=== PATIENT | female | born 1975 ===

== ENCOUNTER 2016-12-13 08:43 | Day surgery (SDC) | payer MEDICAID, SELFPAY ==
[2015-07-12 14:03] VITALS: BMI 26.9
[2016-12-13 10:53] VITALS: RESP 18
--- NOTE | 2016-12-13 11:45 | CP.SDSHP ---
Same Day Surgery H & P - History Proposed Procedure: US guided FNA of thyroid nodules Pre-Op Diagnosis: Thyroid nodules - Allergies Allergies: Allergies PORK Allergy (Unknown, Unverified 05/30/15 10:34) RASH Penicillins Allergy (Verified 05/30/15 10:34) RASH - Physical Exam Vital Signs: Vital Signs 12/13/16 10:30 Temperature 98.2 F Pulse Rate 71 Respiratory 18 Rate Blood Pressure 114/71 O2 Sat by Pulse 98 Oximetry - Impression Impression: Pt with a 1.6 cm hypoechoic thyroid nodule in the right posterior lower pole. A hypoechoic area is present in the medial upper pole of the left thyroid that may represent the nodule described on the US report. Pt. Evaluated Today:Candidate for Anesthesia & Procedure: No Short Stay Discharge - Short Stay Discharge Admitting Diagnosis/Reason for Visit: NONTOXIC SINGLE THYROID NODULE Disposition: HOME/ ROUTINE
--- NOTE | 2016-12-13 11:46 | PCM.SURG1 ---
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 Possible 1.4 cm left thyroid nodule Post-Operative Diagnosis: Thyroid nodules Operation Performed: US guided FNA of right and left thyroid nodule Specimen/Specimens Removed: 25 g FNA x 4 passes per nodule Estimated Blood Loss: EBL {In ML}: 0 Blood Products Given: N/A Drains Used: No Drains Post-Op Condition: Good Date of Surgery/Procedure: 12/13/16 Time of Surgery/Procedure: 11:40
[2016-12-13 12:03] VITALS: BP 123/70; PULSE 73; TEMP 97; O2SAT 100
--- NOTE | 2016-12-17 13:24 | US ---
PROCEDURE: Date of Procedure: 12/13/2016 PROCEDURE: 1. Ultrasound guided FNA of left thyroid nodule, CPT 68293 2. Ultrasound guided FNA of RIGHT thyroid nodule, 3. Ultrasound guidance for FNA, [id number] Medications: 3cc 1% Lidocaine HISTORY: Enlarged thyroid nodules. TECHNIQUE: Following informed consent and procedure time-out, a limited ultrasound patient's neck confirmed the presence of a 1.2 cm complex solid left thyroid nodule. Also present is a complex, predominantly solid right thyroid nodule measuring 1.5 cm. After the patient's neck was prepped and draped in the usual sterile fashion, the skin was anesthetized with 1% lidocaine. Ultrasound-guided fine needle aspiration was then performed of the dominant left thyroid nodule. A total of 4 passes were made into the nodule with 27 gauge needle under ultrasound guidance. The FNA specimen was sent for routine pathology. Ultrasound guided FNA was then performed of the dominant right thyroid nodule. Again 4 passes were made into the nodule with 25 gauge needle. The FNA specimen was sent for routine pathology. Post biopsy ultrasound showed no hematoma. IMPRESSION: Ultrasound-guided FNA of the dominant right and left thyroid nodules.
== END 2016-12-13 12:16 | disposition home or self-care (01) ==
LOC: C.SPRAD 08:43
PROVIDERS: ATTEND Radiology Vascular & Interventional Radiology
DX: E04.1 Nontoxic single thyroid nodule (principal)

== ENCOUNTER → 2018-05-09 | Outpatient (CLI) | payer OTHER | LOC: C.LAB 11:00 | DX: E05.80 Other thyrotoxicosis without thyrotoxic crisis or storm (principal); E78.2 Mixed hyperlipidemia; E11.01 Type 2 diabetes mellitus with hyperosmolarity with coma ==